=== PATIENT | female | born 1955 | race Caucasian/White ===

== ENCOUNTER 2023-01-05 18:41 | Emergency (ER) | payer MEDICARE, OTHER ==
[2023-01-05] MEDS ORDERED: ceFAZolin 2 GM Vial IVPUSH ONE (18:58)
[2023-01-05] MEDS ORDERED: Diphtheria,Pertussis(Acell),Tetanus Vaccine 0.5 ML Syringe IM ONE (18:59)
[2023-01-05] MEDS ORDERED: Ondansetron 4 MG/2 ML SDV IVPUSH ONE (18:59)
[2023-01-05] MEDS ORDERED: HYDROmorphone 2 MG/ML SDV IVPUSH ONE ×2 (18:59→20:13)
[2023-01-05 19:24] LABS: BASOPHILS ABSOLUTE AUTO 0.1 x10-3/uL (0.0-0.1); BASOPHILS PERCENT AUTO 0.9 % (0.2-1.5); EOSINOPHILS ABSOLUTE AUTO 0.3 x10-3/uL (0.0-0.8); EOSINOPHILS PERCENT AUTO 2.7 % (0.6-8.1); HEMATOCRIT 44.5 % (34.2-48.2); HEMOGLOBIN 15.4 g/dL (11.4-15.5); LYMPHOCYTES ABSOLUTE AUTO 4.3 x10-3/uL (1.0-4.4); LYMPHOCYTES PERCENT AUTO 45.7 % (18.4-52.1); MEAN CORPUSCULAR HEMOGLOBIN 32.7 pg (23.9-33.9); MEAN CORPUSCULAR HGB CONC 34.7 g/dL (31.9-34.8); MEAN CORPUSCULAR VOLUME 94.3 fL (76.7-100.5); MEAN PLATELET VOLUME 8.2 fL (7.1-12.4); MONOCYTES ABSOLUTE AUTO 1.3 x10-3/uL (0.3-1.0); MONOCYTES PERCENT AUTO 13.4 % (4.4-15.7); NEUTROPHILS ABSOLUTE AUTO 3.5 x10-3/uL (1.5-6.3); NEUTROPHILS PERCENT AUTO 37.3 % (30.8-76.2); PLATELET COUNT,PLT 296 x10(3)uL (151-488); RED BLOOD CELL COUNT 4.72 x10(6)uL (3.60-5.20); WHITE BLOOD CELL COUNT,WBC 9.4 x10-3/uL (3.0-10.3)
[2023-01-05 19:27] LABS: BLOOD UREA NITROGEN,BUN 16 mg/dL (7-18); CALCIUM 8.8 mg/dL (8.6-10.2); CARBON DIOXIDE,CO2 23 mmol/L (21-32); CHLORIDE,CL 92 mmol/L (100-110); EST CRCL DRUG DOSING (CG) 45.78 mL/min; ESTIMATED GFR 62 mL/min (>60); GLUCOSE RANDOM 135 mg/dL (80-116); POTASSIUM,K 3.2 mmol/L (3.5-5.3); SODIUM,NA 129 mmol/L (135-145)
[2023-01-05 19:30] LABS: C-REACTIVE PROTEIN 0.88 mg/dL (<0.33)
[2023-01-05] MEDS ORDERED: fentaNYL 100 MCG/2 ML SDV IVPUSH ONE (19:31)
[2023-01-05 19:39] LABS: ALBUMIN 3.9 g/dL (3.2-4.6); ALKALINE PHOSPHATASE 104 IU/L (56-112); ASPARTATE AMNIOTRANSFERASE,AST 98 IU/L (5-25); BILIRUBIN TOTAL 0.3 mg/dL (0.1-1.3)
[2023-01-05 19:40] LABS: ALANINE AMINOTRANSFERASE,ALT 165 U/L (12-36); ETHANOL BLOOD MEDICAL 0.19 % (<0.03)
[2023-01-05 19:58] VITALS: BP 169/90; PULSE 97
== END 2023-01-05 20:35 ==
LOC: FB.ED 18:41
DX: S52.612B Displaced fracture of left ulna styloid process, initial encounter for open fracture type I or II (principal); S52.592A Other fractures of lower end of left radius, initial encounter for closed fracture; S63.005A Unspecified dislocation of left wrist and hand, initial encounter; F10.129 Alcohol abuse with intoxication, unspecified; F17.210 Nicotine dependence, cigarettes, uncomplicated; E87.0 Hyperosmolality and hypernatremia; E87.6 Hypokalemia; E83.42 Hypomagnesemia; R79.89 Other specified abnormal findings of blood chemistry; Z88.8 Allergy status to other drugs, medicaments and biological substances; Z23 Encounter for immunization; W18.30XA Fall on same level, unspecified, initial encounter
CPT/HCPCS: 29125; 36415; 73110; 80053; 80307; 83735; 84484; 85025; 86140; 90471; 90715; 93005; 96374; 96375; 96376; 99285; J0690; J1170; J2405; J3010

== ENCOUNTER 2023-04-10 08:25 | Day surgery (SDC) | payer MEDICARE ==
[~2023-04-10 08:25] MED LIST: Lactated Ringers 1,000 ML IV SCH; Sodium Chloride 0.9% 10 ML Syringe FLUSH PRN
[2023-04-10] MEDS ORDERED: Lidocaine 2% 5 ML SDV IV ONE (08:26)
[2023-04-10] MEDS ORDERED: Propofol 200 MG/20 ML SDV IV ONE (08:26)
[2023-04-10] MEDS ORDERED: Glycopyrrolate 0.2 MG/ML 5 ML MDV IV ONE (08:26)
[2023-04-10] MEDS ORDERED: Simethicone Drops 40 MG/0.6 ML 30 ML Bottle ONE (11:54)
[2023-04-10 15:37] VITALS: BP 168/85; PULSE 96
== END 2023-04-10 13:25 | disposition home or self-care (01) ==
LOC: FB.SDS 08:25
PROVIDERS: ATTEND Surgery
DX: Z12.11 Encounter for screening for malignant neoplasm of colon (principal); D12.6 Benign neoplasm of colon, unspecified; K63.5 Polyp of colon; K57.30 Diverticulosis of large intestine without perforation or abscess without bleeding; I10 Essential (primary) hypertension; J45.909 Unspecified asthma, uncomplicated; F32.A Depression, unspecified; Z79.899 Other long term (current) drug therapy; Z88.8 Allergy status to other drugs, medicaments and biological substances
CPT/HCPCS: 00811; 88305; A9270-GY; J2704; J3490; J7120

== ENCOUNTER 2024-07-07 02:50 | Emergency (ER) | payer MEDICARE, OTHER ==
[2024-07-07] MEDS: Sodium Chloride 0.9% 10 ML Syringe FLUSH PRN (03:41)
[2024-07-07] MEDS: Diltiazem 25 MG/5 ML SDV IVPUSH ONE ×2 (03:44→04:41)
[2024-07-07] MEDS: Sodium Chloride 0.9% 1,000 ML IV SCH (03:53)
[2024-07-07 03:57] LABS: BASOPHILS ABSOLUTE AUTO 0.1 x10-3/uL (0.0-0.1); BASOPHILS PERCENT AUTO 0.6 % (0.2-1.5); EOSINOPHILS ABSOLUTE AUTO 0.3 x10-3/uL (0.0-0.8); EOSINOPHILS PERCENT AUTO 3.2 % (0.6-8.1); HEMATOCRIT 47.2 % (34.2-48.2); HEMOGLOBIN 16.5 g/dL (11.4-15.5); LYMPHOCYTES ABSOLUTE AUTO 2.7 x10-3/uL (1.0-4.4); LYMPHOCYTES PERCENT AUTO 28.7 % (18.4-52.1); MEAN CORPUSCULAR HEMOGLOBIN 32.9 pg (23.9-33.9); MEAN CORPUSCULAR VOLUME 93.8 fL (76.7-100.5); MEAN PLATELET VOLUME 8.2 fL (7.1-12.4); MONOCYTES ABSOLUTE AUTO 0.8 x10-3/uL (0.3-1.0); MONOCYTES PERCENT AUTO 8.5 % (4.4-15.7); NEUTROPHILS ABSOLUTE AUTO 5.6 x10-3/uL (1.5-6.3); PLATELET COUNT,PLT 292 x10(3)uL (151-488); RED BLOOD CELL COUNT 5.03 x10(6)uL (3.60-5.20); RED CELL DISTRIBUTION WIDTH 13.3 % (12.3-16.5); WHITE BLOOD CELL COUNT,WBC 9.5 x10-3/uL (3.0-10.3)
[2024-07-07 03:59] LABS: BLOOD UREA NITROGEN,BUN 12 mg/dL (7-18); BUN/CREATININE RATIO 13.3 (9-20); CALCIUM 9.5 mg/dL (8.6-10.2); CARBON DIOXIDE,CO2 26 mmol/L (21-32); CHLORIDE,CL 96 mmol/L (100-110); CREATININE 0.9 mg/dL (0.55-1.02); EST CRCL DRUG DOSING (CG) 47.32 mL/min; ESTIMATED GFR 70 mL/min (>60); GLUCOSE RANDOM 125 mg/dL (80-116); POTASSIUM,K 3.8 mmol/L (3.5-5.3); SODIUM,NA 135 mmol/L (135-145)
[2024-07-07] MEDS: Sodium Chloride 0.9% 500 ML IV ONE (04:02)
[2024-07-07 04:05] LABS: A/G RATIO 0.7; ALANINE AMINOTRANSFERASE,ALT 23 U/L (12-36); ALBUMIN 3.6 g/dL (3.2-4.6); ALKALINE PHOSPHATASE 83 IU/L (56-112); ASPARTATE AMNIOTRANSFERASE,AST 21 IU/L (5-25); BILIRUBIN TOTAL 0.5 mg/dL (0.1-1.3); MAGNESIUM 1.6 mg/dL (1.8-2.5); PROTEIN TOTAL,TP 8.5 g/dL (6.0-8.0)
[2024-07-07 04:12] LABS: BILIRUBIN,URINE NEGATIVE (NEGATIVE); GLUCOSE,URINE NORMAL (NORMAL); KETONES,URINE NEGATIVE (NEGATIVE); LEUKOCYTE ESTERASE,URINE NEGATIVE (NEGATIVE); NITRITE,URINE NEGATIVE (NEGATIVE); OCCULT BLOOD,URINE NEGATIVE (NEGATIVE); PROTEIN,URINE NEGATIVE (NEGATIVE); UROBILINOGEN,URINE NORMAL (NEGATIVE)
[2024-07-07 04:13] LABS: APPEARANCE,URINE CLEAR (CLEAR); COLOR,URINE YELLOW (YELLOW)
[2024-07-07 04:14] LABS: TROPONIN I 24.5 pg/mL (4.0-60.3)
[2024-07-07] MEDS: Iopamidol 755 Mg/ML 100 ML Bottle IV ONE (06:21)
[2024-07-07] MEDS: Diltiazem 125 MG in Sodium Chloride 0.9% 100 ML IV SCH (06:32)
[2024-07-07] MEDS: Diltiazem 125 MG/25 ML SDV ONE ×2 (06:40)
[2024-07-07] MEDS: Metoprolol Tartrate 5 MG/5 ML SDV IVPUSH SCH (08:35)
[2024-07-07] MEDS: Ondansetron 4 MG/2 ML SDV IVPUSH ONE (08:42)
[2024-07-07 11:18] VITALS: PULSE 96
[2024-07-07 12:56] VITALS: BP 114/57
== END 2024-07-07 12:25 ==
LOC: FB.ED 02:50
DX: I48.91 Unspecified atrial fibrillation (principal); M54.6 Pain in thoracic spine; M79.602 Pain in left arm; M79.601 Pain in right arm; I10 Essential (primary) hypertension; J45.909 Unspecified asthma, uncomplicated; Z90.710 Acquired absence of both cervix and uterus; F17.210 Nicotine dependence, cigarettes, uncomplicated; Z88.8 Allergy status to other drugs, medicaments and biological substances; Z79.51 Long term (current) use of inhaled steroids; Z79.899 Other long term (current) drug therapy
CPT/HCPCS: 36415; 71045; 71275; 80053; 80307; 81001; 83735; 83880; 84484; 85025; 85379; 93005; 93010; 96361; 96365; 96366; 96375; 96376; 99285; 99285-25; J2405; J3490; J7030; Q9967